=== PATIENT | female | born 1950 | race African-American/Black ===

== ENCOUNTER 2016-10-21 10:52 | Outpatient (CLI) | payer MEDICARE, MEDICAID ==
[2016-10-21 11:12] LABS: Bilirubin Negative (Negative); Blood, Urine Negative (Negative); Clarity Clear (Clear); Glucose, Urine (Dipstick) Negative (Negative); Leukocyte Trace (Negative); Nitrite Negative (Negative); Protein, Urine (Dipstick) 100 mg/dL (Neg-Trace); Urobilinogen 0.2 mg/dL (0.2-1.0)
[2016-10-21 11:14] LABS: #Basophils 0.1 thou/uL (0.0-0.2); #Eosinphils 0.2 thou/uL (0.0-0.7); #Lymphocytes 2.5 thou/uL (1.20-3.40); #Monocytes 0.4 thou/uL (0.11-0.59); #Neutrophils 2.6 thou/uL (1.40-6.50); %Basophils 2.1 % (0.0-1.0); %Eosinophils 3.1 % (0.0-10.0); %Lymphocytes 43.2 % (21.0-51.0); %Monocytes 6.8 % (0.0-10.0); %Neutrophils 44.9 % (42.0-75.0); Hemoglobin 12.9 g/dL (12.0-16.0); Mean Corpuscular HGB CONC 31.8 g/dL (32.0-36.0); Mean Corpuscular Volume 81.8 fl (81.0-99.0); Mean Platelet Volume 6.6 fL (7.4-10.4); Platelet Count 418 thou/uL (130-400); RBC Distribution Width 13.7 % (11.5-14.5); Red Blood Cell (RBC) Count 4.96 mill/uL (4.20-5.40); White Blood Cell (WBC) Count 5.7 thou/uL (4.8-10.8)
[2016-10-21 11:19] LABS: Bacteria/HPF None Seen HPF (None Seen); RBC/HPF 0-3 HPF (0-3); Squamous Epithelial 0-3 HPF (0-3); WBC/HPF 0-3 HPF (0-3)
[2016-10-21 11:20] LABS: Hemoglobin A1c 5.8 % (4.0-6.0)
[2016-10-21 11:29] LABS: ALT (SGPT) 13 U/L (0-55); AST (SGOT) 14 U/L (5-34); Albumin 4.1 g/dL (3.4-4.8); Alkaline Phosphatase 72 U/L (40-150); Anion Gap 14 mmol/L (10-20); BUN (Urea Nitrogen) 14 mg/dL (9.8-20.1); Bilirubin, Total 0.4 mg/dL (0.2-1.2); CRP (Inflammatory) 1.29 mg/dL (= or < 0.5); Calc. Creatinine Clearance 0 mL/min (70-130); Calcium 9.4 mg/dL (7.8-10.44); Carbon Dioxide 27 mmol/L (23-31); Cardiac Risk 3.3 (Less than 4.5); Chloride 104 mmol/L (98-107); Cholesterol 189 mg/dL (< 200 Desired); Estimated GFR-MDRD 75; Globulin 3.8 g/dL (2.4-3.5); Glucose 93 mg/dL (80-115); HDL Cholesterol 58 mg/dL (>60 Neg Risk); LDL Cholesterol, Calculated 106 mg/dL; Potassium 4.3 mmol/L (3.5-5.1); Protein, Total 7.9 g/dL (5.8-8.1); Sodium 141 mmol/L (136-145); Triglycerides 124 mg/dL (Less than 150); Uric Acid 5.1 mg/dL (2.6-6.0)
== END 2016-10-21 10:53 | disposition home or self-care (01) ==
LOC: MADLAB 10:52
PROVIDERS: ATTEND Family Medicine
DX: I10 Essential (primary) hypertension (principal)
CPT/HCPCS: 36415; 80053; 80061; 81001; 83036; 84443; 84550; 85025; 85652; 86140

== ENCOUNTER 2017-01-21 08:43 | Outpatient (CLI) | payer MEDICAID, MEDICARE ==
[2017-01-21 10:32] LABS: Hemoglobin A1c 5.8 % (4.0-6.0)
[2017-01-21 10:51] LABS: ALT (SGPT) 11 U/L (8-55); AST (SGOT) 15 U/L (5-34); Albumin 4.3 g/dL (3.4-4.8); Alkaline Phosphatase 77 U/L (40-150); Anion Gap 14 mmol/L (10-20); BUN (Urea Nitrogen) 18 mg/dL (9.8-20.1); Bilirubin, Total 0.6 mg/dL (0.2-1.2); Calc. Creatinine Clearance 0 mL/min (70-130); Calcium 9.5 mg/dL (7.8-10.44); Carbon Dioxide 24 mmol/L (23-31); Cardiac Risk 2.9 (Less than 4.5); Chloride 105 mmol/L (98-107); Cholesterol 158 mg/dL (< 200 Desired); Estimated GFR-MDRD 60; Glucose 90 mg/dL (80-115); HDL Cholesterol 55 mg/dL (>60 Neg Risk); LDL Cholesterol, Calculated 83 mg/dL; Potassium 3.8 mmol/L (3.5-5.1); Protein, Total 8.3 g/dL (5.8-8.1); Sodium 139 mmol/L (136-145); Triglycerides 98 mg/dL (Less than 150); Uric Acid 6.3 mg/dL (2.6-6.0)
[2017-01-21 13:24] LABS: Bilirubin Negative (Negative); Blood, Urine Negative (Negative); Glucose, Urine (Dipstick) Negative (Negative); Leukocyte Trace (Negative); Nitrite Negative (Negative); Protein, Urine (Dipstick) Trace mg/dL (Neg-Trace); Urobilinogen 0.2 mg/dL (0.2-1.0); pH, Urine 5.5 (5.0-9.0)
[2017-01-21 13:55] LABS: Clarity Hazy (Clear)
[2017-01-21 13:56] LABS: Bacteria/HPF Rare-Few HPF (None Seen); RBC/HPF 0-3 HPF (0-3); Squamous Epithelial 0-3 HPF (0-3); WBC/HPF 0-3 HPF (0-3)
== END 2017-01-21 08:44 | disposition home or self-care (01) ==
LOC: MADLAB 08:43
PROVIDERS: ATTEND Family Medicine
DX: E78.00 Pure hypercholesterolemia, unspecified (principal); M06.9 Rheumatoid arthritis, unspecified; M10.9 Gout, unspecified; I10 Essential (primary) hypertension; R73.03 Prediabetes
CPT/HCPCS: 36415; 80053; 80061; 81001; 83036; 84550; 85652

== ENCOUNTER 2017-06-10 09:41 | Outpatient (CLI) | payer MEDICAID, MEDICARE ==
[2017-06-10 11:00] LABS: Anion Gap 15 mmol/L (10-20); BUN (Urea Nitrogen) 14 mg/dL (9.8-20.1); Calc. Creatinine Clearance 0 mL/min (70-130); Calcium 9.7 mg/dL (7.8-10.44); Carbon Dioxide 24 mmol/L (23-31); Chloride 108 mmol/L (98-107); Estimated GFR-MDRD 80; Glucose 87 mg/dL (80-115); Potassium 4.8 mmol/L (3.5-5.1); Sodium 142 mmol/L (136-145); Uric Acid 5.3 mg/dL (2.6-6.0)
== END 2017-06-10 09:42 | disposition home or self-care (01) ==
LOC: MADLAB 09:41
PROVIDERS: ATTEND Family Medicine
DX: I12.9 Hypertensive chronic kidney disease with stage 1 through stage 4 chronic kidney disease, or unspecified chronic kidney disease (principal); N18.9 Chronic kidney disease, unspecified; M10.9 Gout, unspecified
CPT/HCPCS: 36415; 80048; 84550

== ENCOUNTER 2017-11-08 10:42 | Emergency (ER) | payer MEDICARE ==
[2017-11-08] MEDS ORDERED: HYDROcodone/Acetaminophen 5/325 mg Tablet ONE (11:32)
[2017-11-08] MEDS ORDERED: Colchicine 0.6 MG TAB ONE (11:33)
[2017-11-08] MEDS ORDERED: Dexamethasone 4 MG TAB ONE (11:33)
[2017-11-08] MEDS ORDERED: Ibuprofen 800 MG TAB ONE (11:33)
--- NOTE | 2017-11-08 12:24 | RAD ---
LEFT KNEE 2 VIEWS: Date: 11/08/17 HISTORY: Left knee pain. FINDINGS: Degenerative changes are seen, manifested by osteophyte formation and joint space narrowing. No fract ure, dislocation, or bony destruction is seen. IMPRESSION: Left knee osteoarthritis. POS: [facility]
== END 2017-11-08 11:40 | disposition home or self-care (01) ==
LOC: MADERS 10:42
DX: M10.9 Gout, unspecified (principal); I10 Essential (primary) hypertension
CPT/HCPCS: J8540

== ENCOUNTER 2021-02-10 09:48 | Emergency (ER) | payer MEDICARE, OTHER ==
[2021-02-10] MEDS ORDERED: Loratadine 10 MG TAB ONE (10:36)
[2021-02-10] MEDS ORDERED: Dexamethasone 4 MG TAB ONE (10:36)
== END 2021-02-10 10:53 | disposition home or self-care (01) ==
LOC: MADERS 09:48
DX: J02.9 Acute pharyngitis, unspecified (principal); J30.9 Allergic rhinitis, unspecified; I10 Essential (primary) hypertension
CPT/HCPCS: 87081; 87430; 99283; J8540

== ENCOUNTER 2024-09-09 13:15 | Emergency (ER) | payer OTHER ==
[2024-09-09] MEDS ORDERED: Acetaminophen 500 MG TAB ONE (14:03)
== END 2024-09-09 14:47 | disposition home or self-care (01) ==
LOC: MADERS 13:15
DX: S80.01XA Contusion of right knee, initial encounter (principal); I10 Essential (primary) hypertension; W06.XXXA Fall from bed, initial encounter
CPT/HCPCS: 99283

== ENCOUNTER 2025-05-31 08:36 | Emergency (ER) | payer OTHER, MEDICAID ==
[2025-05-31] MEDS ORDERED: hydrALAZINE 10 MG TAB ONE (09:21)
[2025-05-31] MEDS ORDERED: Losartan 25 MG TAB ONE (09:21)
[2025-05-31] MEDS ORDERED: Ibuprofen 200 MG TAB ONE (09:21)
== END 2025-05-31 09:35 | disposition home or self-care (01) ==
LOC: MADERS 08:36
DX: S90.31XA Contusion of right foot, initial encounter (principal); L60.1 Onycholysis; L60.3 Nail dystrophy; I10 Essential (primary) hypertension; M13.871 Other specified arthritis, right ankle and foot; Z91.148 Patient's other noncompliance with medication regimen for other reason; Z79.899 Other long term (current) drug therapy; W01.0XXA Fall on same level from slipping, tripping and stumbling without subsequent striking against object, initial encounter
CPT/HCPCS: 99283